=== PATIENT | male | born 2000 | race African-American/Black ===

== ENCOUNTER 2019-10-22 12:46 | Emergency (ER) | payer SELFPAY ==
[2019-10-22 12:56] VITALS: BP 125/67; PULSE 108; RESP 20; TEMP 36.6; O2SAT 99
--- NOTE | 2019-10-22 13:06 | ED.MALEGU ---
HPI - Male Genitourinary General Stated complaint: std check Time Seen by Provider: 10/22/19 13:06 Source: patient and RN notes reviewed History of Present Illness HPI Narrative: Patient is a 18-year-old male that presents the urgent care with requesting STD check. Patient states he got tested approximately 1+ month ago and has not had intercourse since then. Patient states that his GC chlamydia was negative for both gonorrhea and chlamydia at that time. Patient states he would like to be tested for trichomoniasis and all the other ones . Patient is aware that we do not do blood test here and he will only be checked for trichomonas today. Patient verbalizes understanding. Patient states his main concern is that he is not getting a full erection and is having white penile discharge post ejaculation. Patient denies any urinary symptoms, abdominal pain, pain with intercourse. No other acute complaints. No acute distress noted. Patient had a plan of care. Related Data Home Medications Medication Instructions Recorded Confirmed No Home Medications 10/22/19 10/22/19 Allergies Allergy/AdvReac Type Severity Reaction Status Date / Time No Known Allergies Allergy Verified 10/22/19 13:10 Review of Systems Review of Systems: Narrative: CONSTITUTIONAL: Denies fever, chills, or sweats. EYES: Denies visual changes, redness, or discharge. ENT: Denies rhinorrhea, congestion, sore throat, or otalgia. CARDIOVASCULAR: Denies chest pain, palpitations, or edema. RESPIRATORY: Denies cough or dyspnea. GASTROINTESTINAL: Denies abdominal pain, nausea, vomiting, or diarrhea. GENITOURINARY: Denies dysuria or hematuria. Reports of white penile discharge after ejaculation SKIN: Denies rash or itching. MUSCULOSKELETAL: Denies back pain, joint pain, or myalgia. NEUROLOGIC: Denies headache, numbness, or weakness. All other systems reviewed are negative, except as documented in HPI. PMFSH Comments At the time of my signature, I reviewed and agree with the nursing past medical, surgical, social, and family history. There is no relevant family history pertinent to the patient complaint. Exam Narrative: Exam Narrative: GENERAL: This is a well-nourished, well-developed patient, in no apparent distress. HEAD: normocephalic, atraumatic. EYES: PERRL. Sclera clear/white. Vision is grossly intact. EARS: External ears normal NOSE: External nose normal with no obvious nasal discharge THROAT: Mucous membranes moist NECK: Neck supple CARDIOVASCULAR: Regular rate and rhythm without murmurs, gallops, or rubs. RESPIRATORY: Clear to auscultation. Breath sounds equal bilaterally. No wheezes, rales, or rhonchi. SKIN: warm, intact with no suspicious lesions or rash, good texture and turgor. NEURO: awake, alert, and oriented to person, place and time. There were no obvious focal neurologic abnormalities. EXTREMITIES: No clubbing, cyanosis, or edema. Course Vital Signs Vital signs: Vital Signs Temperature 97.8 F 10/22/19 12:56 Pulse Rate 108 H 10/22/19 12:56 Respiratory Rate 20 10/22/19 12:56 Blood Pressure 125/67 10/22/19 12:56 Pulse Oximetry 99 10/22/19 12:56 Temperature 97.8 F 10/22/19 12:56 Pulse Rate 108 H 10/22/19 12:56 Respiratory Rate 20 10/22/19 12:56 Blood Pressure 125/67 10/22/19 12:56 Pulse Oximetry 99 10/22/19 12:56 Reviewed MDM - Male Genitourinary MDM Narrative Medical decision making narrative: Patient is aware that we will call him regarding STD testing and it may take 1 week. Advised the patient to refrain from unprotected sex. Follow-up with the health department or his PCP regarding further STD testing. Patient states that he was not informed by a partner that they were positive for STDs and is aware that treatment is not necessary at this time. Differential Diagnosis Differential diagnosis: Likely urinary tract infection, epididymitis, genital herpes simplex and prostatitis Critical Care Time
== END 2019-10-22 13:15 | disposition home or self-care (01) ==
PROVIDERS: Emergency Provider Nurse Practitioner Family
DX: Z11.3 Encounter for screening for infections with a predominantly sexual mode of transmission (principal)
CPT/HCPCS: 87661; 99203; G0463